=== PATIENT | female | born 1965 | race Two or more races ===

== ENCOUNTER 2018-06-26 12:07 | Emergency (ER) | payer MEDICAID, OTHER ==
[2018-06-26 12:36] VITALS: BP 151/73
== END 2018-06-26 13:28 | disposition home or self-care (01) ==
LOC: ER 12:17
DX: H00.014 Hordeolum externum left upper eyelid (principal)

== ENCOUNTER 2020-01-04 14:05 | Inpatient (IN) | payer MEDICAID ==
[~2020-01-04] VITALS: Ht 165.1 cm; Wt 92.8 kg
[2020-01-04] MEDS ORDERED: ACETAMINOPHEN 500 MG TAB PO ONE (14:30)
[2020-01-04 15:22] LABS: Basophils # (auto) 0 10 ^3/uL (0-0.2); Basophils % (auto) 0.7 % (0.0-2.0); Eosinophils # (auto) 0 10 ^3/uL (0-0.8); Eosinophils % (auto) 0.1 % (0.0-7.0); Hematocrit 39.8 % (36.0-46.0); Hemoglobin 13.5 g/dL (12.2-16.2); Lymphocytes # (auto) 1.5 10 ^3/uL (0.4-5.4); Lymphocytes % (auto) 27.4 % (10.0-50.0); Mean Corpuscular Hemoglobin 29.7 pg (28.0-32.0); Mean Corpuscular Volume 87.3 fL (80.0-100.0); Monocytes # (auto) 0.3 10 ^3/uL (0-1.3); Monocytes % (auto) 4.7 % (0.0-12.0); Neutrophils # (auto) 3.6 10 ^3/uL (1.6-8.6); Neutrophils % (auto) 67.1 % (37.0-80.0); Platelet Count (auto) 158 10^3/uL (140-450); Red Blood Cells 4.56 10^6/uL (4.0-5.20); Red Cell Distribution Width 13.2 % (11.8-14.3); White Blood Cell 5.4 10^3/uL (4.4-10.8)
[2020-01-04 15:28] LABS: Albumin 3.4 g/dL (3.4-5.0); Anion Gap 9 (5-15); Blood Urea Nitrogen 10 mg/dL (7-18); Calcium 8.1 mg/dL (8.5-10.1); Carbon Dioxide 25 mmol/L (21-32); Chloride 103 mmol/L (98-107); Glucose 144 mg/dL (74-106); Magnesium 2.1 mg/dL (1.6-2.6); Potassium 3.7 mmol/L (3.5-5.1); Sodium 137 mmol/L (136-145)
[2020-01-04 15:35] LABS: Alanine Aminotransferase 73 U/L (13-56); Alkaline Phosphatase 63 U/L (45-117); Aspartate Aminotransferase 80 U/L (15-37); BUN/Creatinine Ratio 11.6; Bilirubin, Total 0.3 mg/dL (0.2-1.0); CRP High Sensitivity 8.07 mg/dL (< 0.3); GFR African American 88 mL/min; GFR Non-African American 73 mL/min; Lactate Dehydrogenase 348 U/L (84-246); Total Protein 7.3 g/dL (6.4-8.2)
[2020-01-04 15:59] LABS: Urine WBC None Seen /hpf (0 - 5)
[2020-01-04 16:09] LABS: Urine Bacteria NONE SEEN /hpf (None Seen); Urine Blood TRACE /uL (Negative); Urine Specific Gravity 1.007 (1.001-1.035)
[2020-01-04] MEDS ORDERED: AZITHROMYCIN 500MG/ 250ML 250 ML IV ONE (16:30)
[2020-01-04] MEDS ORDERED: cefTRIAXone 1GM/50ML D5W 50 ML IV ONE (16:30)
[2020-01-04] MEDS ORDERED: ZINC SULFATE 220mg CAP or TAB PO ONE (16:45)
[2020-01-04] MEDS ORDERED: ASCORBIC ACID 500 MG TAB PO ONE (16:45)
[2020-01-04] MEDS ORDERED: DexAMETHasone SOD PHOS 10MG/1ML VIAL INJ IV ONE (16:45)
[2020-01-04] MEDS ORDERED: NITROGLYCERIN 0.4 MG SL TAB SL PRN (17:45)
[2020-01-04] MEDS ORDERED: ACETAMINOPHEN 500 MG TAB PO PRN (17:45)
[2020-01-04] MEDS ORDERED: MORPHINE SULF INJ 2 MG/ML SYRINGE 1ML IV PRN (17:45)
[2020-01-04] MEDS ORDERED: FUROSEMIDE 40 MG/4 ML VIAL IV ONE (17:45)
[2020-01-04] MEDS: ALBUTEROL SULF HFA 90MCG INH 200DOSE IN SCH (22:00)
[2020-01-04] MEDS: DOXYCYCLINE 100 MG TAB/CAP PO SCH (23:03)
[2020-01-05 01:15] VITALS: BP 105/63
[2020-01-05] MEDS: ALBUTEROL SULF HFA 90MCG INH 200DOSE IN SCH ×4 (06:00→22:38)
[2020-01-05 06:42] LABS: Basophils # (auto) 0 10 ^3/uL (0-0.2); Basophils % (auto) 0.3 % (0.0-2.0); Eosinophils # (auto) 0 10 ^3/uL (0-0.8); Hemoglobin 13.7 g/dL (12.2-16.2); Lymphocytes % (auto) 24.3 % (10.0-50.0); Mean Corpuscular Hemoglobin 29.7 pg (28.0-32.0); Mean Corpuscular Hgb Conc. 34.2 g/dL (32.0-36.0); Monocytes # (auto) 0.2 10 ^3/uL (0-1.3); Monocytes % (auto) 3.9 % (0.0-12.0); Neutrophils # (auto) 2.9 10 ^3/uL (1.6-8.6); Neutrophils % (auto) 71.5 % (37.0-80.0); Nucleated Red Blood Cells % 0.1 %; Platelet Count (auto) 174 10^3/uL (140-450); Red Cell Distribution Width 13.3 % (11.8-14.3); White Blood Cell 4.1 10^3/uL (4.4-10.8)
[2020-01-05 06:53] LABS: Albumin 3.3 g/dL (3.4-5.0); Calcium 8.3 mg/dL (8.5-10.1); Magnesium 2.3 mg/dL (1.6-2.6); Potassium 3.7 mmol/L (3.5-5.1)
[2020-01-05 06:59] LABS: BUN/Creatinine Ratio 20.8; Bilirubin, Total 0.4 mg/dL (0.2-1.0); Total Protein 7.7 g/dL (6.4-8.2)
[2020-01-05] MEDS: DexAMETHasone SOD PHOS 4 MG/1ML SDV INJ IV SCH ×2 (09:11→21:56)
[2020-01-05] MEDS: DOXYCYCLINE 100 MG TAB/CAP PO SCH ×2 (09:11→21:57)
[2020-01-05] MEDS ORDERED: ENOXAPARIN SOD 40 MG/0.4 ML SYRINGE SC SCH (10:00)
[2020-01-05] MEDS ORDERED: CHOLECALCIFEROL (VITD3) 1,000IU=25mCg TAB PO SCH (10:00)
[2020-01-05] MEDS ORDERED: ASCORBIC ACID 1,000 MG TAB PO SCH (10:00)
[2020-01-05] MEDS ORDERED: ZINC SULFATE 220mg CAP or TAB PO SCH (10:00)
[2020-01-05] MEDS ORDERED: FUROSEMIDE 20 MG TAB PO ONE (14:15)
[2020-01-05] MEDS ORDERED: FUROSEMIDE 20 MG/2 ML VIAL IV ONE (15:00)
[2020-01-05 17:00] VITALS: BP 153/63
[2020-01-05 22:00] VITALS: BP 152/85
[2020-01-06 05:03] VITALS: BP 136/88
[2020-01-06 09:00] VITALS: BP 157/96
[2020-01-06] MEDS ORDERED: FUROSEMIDE 20 MG TAB PO SCH (10:00)
[2020-01-06] MEDS: DexAMETHasone SOD PHOS 4 MG/1ML SDV INJ IV SCH ×2 (10:22→22:07)
[2020-01-06] MEDS: FUROSEMIDE 20 MG/2 ML VIAL IV SCH (10:22)
[2020-01-06 13:17] VITALS: BP 137/89
[2020-01-06 16:30] VITALS: BP 127/84
[2020-01-06] MEDS ORDERED: ACETAMINOPHEN 325 MG TAB PO PRN (17:45)
[2020-01-06 21:22] VITALS: BP 136/83
[2020-01-07 04:13] LABS: BUN/Creatinine Ratio 27.3; Calcium 8.4 mg/dL (8.5-10.1); Potassium 3.8 mmol/L (3.5-5.1)
[2020-01-07 05:00] VITALS: BP 117/57
[2020-01-07 08:15] VITALS: BP 103/57
[2020-01-07 08:33] VITALS: BP 103/57
[2020-01-07] MEDS: DexAMETHasone SOD PHOS 4 MG/1ML SDV INJ IV SCH ×2 (10:03→21:33)
[2020-01-07] MEDS: FUROSEMIDE 20 MG/2 ML VIAL IV SCH (10:04)
[2020-01-07] MEDS: CHOLECALCIFEROL (VITD3) 1,000IU=25mCg TAB PO SCH (10:04)
[2020-01-07] MEDS ORDERED: ENOXAPARIN SOD 40 MG/0.4 ML SYRINGE SC ONE (12:45)
[2020-01-07] MEDS ORDERED: levoFLOXacin 250 MG TAB PO ONE (12:45)
[2020-01-07 17:00] VITALS: BP 120/71
[2020-01-07 19:57] VITALS: BP 120/71
[2020-01-07 22:00] VITALS: BP 121/79
[2020-01-08 05:00] VITALS: BP 121/79
[2020-01-08 08:00] VITALS: BP 107/72
[2020-01-08 09:24] VITALS: BP 107/72
[2020-01-08] MEDS: DexAMETHasone SOD PHOS 4 MG/1ML SDV INJ IV SCH ×2 (11:05→21:41)
[2020-01-08] MEDS: FUROSEMIDE 20 MG/2 ML VIAL IV SCH (11:06)
[2020-01-08] MEDS: ENOXAPARIN SOD 40 MG/0.4 ML SYRINGE SC SCH (11:07)
[2020-01-08] MEDS: CHOLECALCIFEROL (VITD3) 1,000IU=25mCg TAB PO SCH (11:07)
[2020-01-08] MEDS: levoFLOXacin 500 MG TAB PO SCH (11:11)
[2020-01-08 13:00] VITALS: BP 122/82
[2020-01-08 17:01] VITALS: BP 127/75
[2020-01-08 22:00] VITALS: BP 126/75
[2020-01-09 05:58] VITALS: BP 124/72
[2020-01-09 07:25] LABS: Basophils # (auto) 0 10 ^3/uL (0-0.2); Basophils % (auto) 0.2 % (0.0-2.0); Eosinophils # (auto) 0 10 ^3/uL (0-0.8); Hematocrit 42.6 % (36.0-46.0); Hemoglobin 14.7 g/dL (12.2-16.2); Lymphocytes % (auto) 8.5 % (10.0-50.0); Mean Corpuscular Hgb Conc. 34.4 g/dL (32.0-36.0); Mean Corpuscular Volume 87.1 fL (80.0-100.0); Monocytes # (auto) 0.8 10 ^3/uL (0-1.3); Monocytes % (auto) 6.2 % (0.0-12.0); Neutrophils # (auto) 10.2 10 ^3/uL (1.6-8.6); Neutrophils % (auto) 85.1 % (37.0-80.0); Nucleated Red Blood Cells % 0.1 %; Platelet Count (auto) 342 10^3/uL (140-450); Red Cell Distribution Width 12.8 % (11.8-14.3)
[2020-01-09 07:42] LABS: BUN/Creatinine Ratio 25.6; Calcium 8.8 mg/dL (8.5-10.1)
[2020-01-09 09:04] VITALS: BP 131/91
[2020-01-09] MEDS: FUROSEMIDE 20 MG/2 ML VIAL IV SCH (10:05)
[2020-01-09] MEDS: DexAMETHasone SOD PHOS 4 MG/1ML SDV INJ IV SCH (10:05)
[2020-01-09] MEDS: CHOLECALCIFEROL (VITD3) 1,000IU=25mCg TAB PO SCH (10:06)
[2020-01-09] MEDS: ENOXAPARIN SOD 40 MG/0.4 ML SYRINGE SC SCH (10:06)
[2020-01-09] MEDS: levoFLOXacin 500 MG TAB PO SCH (10:06)
[2020-01-09 13:00] VITALS: BP 131/84
[2020-01-09] MEDS ORDERED: LEVO-28 PO (15:09)
[2020-01-09] MEDS ORDERED: MULTCAP45 PO (15:10)
[2020-01-09 16:39] VITALS: BP 131/91
[2020-01-09 17:23] VITALS: BP 134/86
== END 2020-01-09 18:30 | disposition home or self-care (01) | DRG 720 ==
LOC: ER 14:05 → TELE 14:06 → TELE-EAST 01-05 12:04 → TELE-E-ADS 01-06 17:05
PROVIDERS: ADMIT Nurse Practitioner Acute Care; ATTEND Internal Medicine Nephrology
DX: A41.89 Other specified sepsis (principal); U07.1 COVID-19; J96.01 Acute respiratory failure with hypoxia; J12.89 Other viral pneumonia; E66.9 Obesity, unspecified; R73.9 Hyperglycemia, unspecified; R74.0 Nonspecific elevation of levels of transaminase and lactic acid dehydrogenase [LDH]; Z68.32 Body mass index [BMI] 32.0-32.9, adult
CPT/HCPCS: 36415; 71045; 80048; 80053; 81001; 82728; 83036; 83605; 83615; 83735; 84443; 84484; 85025; 85379; 85652; 86141; 87040; 87070; 87804; 87880; 99291; G0378; J0696; J1100